=== PATIENT | male | born 2000 | race Native Hawaiian/Other Pacific Islander ===

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

== ENCOUNTER 2022-04-03 15:01 | Emergency (ER) | payer OTHER ==
[~2022-04-03] VITALS: Ht 172.7 cm; Wt 86.2 kg
[2022-04-03 15:10] VITALS: TEMP 98
[2022-04-03 15:41] LABS: PLATELET COUNT 410 K/uL (142-355)
[2022-04-03 15:56] LABS: POTASSIUM 3.8 mmol/L (3.6-5.2)
[2022-04-03 18:34] VITALS: BP 142/74
== END 2022-04-03 18:36 | disposition short-term general hospital (02) ==
LOC: ED 15:01
PROVIDERS: Emergency Medicine Emergency Medical Services
DX: N30.00 Acute cystitis without hematuria (principal); N50.89 Other specified disorders of the male genital organs; N50.82 Scrotal pain; Z87.828 Personal history of other (healed) physical injury and trauma
CPT/HCPCS: 80048; 83605; 85027; 87040; 96360; 96365; 96366; 99284; J1956; J2270; J2405

== ENCOUNTER 2022-07-04 16:00 | Emergency (ER) | payer OTHER ==
[~2022-07-04] VITALS: Ht 172.7 cm; Wt 79.4 kg
[2022-07-04 16:03] VITALS: BP 136/77; TEMP 98.1
[2022-07-04 17:32] LABS: PLATELET COUNT 376 K/uL (142-355)
[2022-07-04 17:40] LABS: POTASSIUM 3.7 mmol/L (3.6-5.2)
== END 2022-07-04 21:20 | disposition left against medical advice (07) ==
LOC: ED 16:00
PROVIDERS: Emergency Medicine
DX: R19.03 Right lower quadrant abdominal swelling, mass and lump (principal); Z85.47 Personal history of malignant neoplasm of testis; F17.290 Nicotine dependence, other tobacco product, uncomplicated; Z53.29 Procedure and treatment not carried out because of patient's decision for other reasons
CPT/HCPCS: 36415; 80053; 85027; 99285

== ENCOUNTER 2022-07-09 15:58 | Emergency (ER) | payer OTHER ==
[~2022-07-09] VITALS: Ht 167.6 cm; Wt 79.4 kg
[2022-07-09 17:57] LABS: PLATELET COUNT 398 K/uL (142-355)
[2022-07-10 05:55] VITALS: TEMP 98.9
[2022-07-10 06:20] VITALS: BP 117/59
== END 2022-07-10 06:20 | disposition short-term general hospital (02) ==
LOC: ED 15:58
PROVIDERS: Emergency Medicine
DX: R91.8 Other nonspecific abnormal finding of lung field (principal); R19.09 Other intra-abdominal and pelvic swelling, mass and lump
CPT/HCPCS: 36415; 80053; 80307; 81002; 85027; 96361; 96374; 96375; 96376; 99285; J2270; J2405